=== PATIENT | female | born 1970 | race Caucasian/White ===

== ENCOUNTER 2017-03-27 10:08 | Emergency (ER) | payer SELFPAY ==
[2017-03-27 10:40] VITALS: BP 97/62
--- NOTE | 2017-03-27 11:12 | UC ---
Back Pain HPI - HPI Summary HPI Summary: pt presents with c/o left buttock and radiating pain. She reports that she sat for a long period of time yesterday on a metal chair and now has mid left buttock discomfort and radiating pain down the back of left leg upon waking this morning. - History of Current Complaint Chief Complaint: UCBackPain Stated Complaint: BACK PAIN Time Seen by Provider: 03/27/17 11:06 Hx Obtained From: Patient Hx Last Menstrual Period: Aug 2016 ?: No Onset/Duration: Gradual Onset, Lasting Hours Timing: Constant Severity Initially: Mild Severity Currently: Moderate Back Pain: Is Discrete @ - left mid buttock, Radiates To - down posterior left leg Character: Dull, Aching Aggravating: Movement Alleviating: Position Associated Signs And Symptoms: Positive: Pain with Weight Bearing - Risk Factors Cauda Equina Risk Factors: Negative - Allergies/Home Medications Allergies/Adverse Reactions: Allergies Allergy/AdvReac Type Severity Reaction Status Date / Time Hydromorphone [From Dilaudid] Allergy Swelling Verified 03/27/17 10:15 Of Face,Lips,& Throat Sulfa Antibiotics Allergy Hives Verified 03/27/17 10:15 PMH/Surg Hx/FS Hx/Imm Hx Previously Healthy: Yes - Surgical History Surgical History: Yes Surgery Procedure, Year, and Place: CSection x2. Right Falopian tube removed. Right wrist ORIF - Family History Known Family History: Positive: Cardiac Disease, Hypertension - mother, Diabetes - Social History Alcohol Use: Occasionally Substance Use Type: None Smoking Status (MU): Heavy Every Day Tobacco Smoker Type: Cigarettes Amount Used/How Often: 1/2 PPD Length of Time of Smoking/Using Tobacco: started at age 15 Have You Smoked in the Last Year: Yes Household Exposure Type: Cigarettes - Immunization History Most Recent Influenza Vaccination: Not the Season Review of Systems Constitutional: Negative Skin: Negative Eyes: Negative ENT: Negative Respiratory: Negative Cardiovascular: Negative Gastrointestinal: Negative Genitourinary: Negative Motor: Decreased ROM - left buttock, Neurovascular: Negative Musculoskeletal: Arthralgia, Myalgia Neurological: Negative Psychological: Negative All Other Systems Reviewed And Are Negative: Yes Physical Exam Triage Information Reviewed: Yes Appearance: Well-Appearing Vital Signs: Initial Vital Signs Temp 98.5 F 03/27/17 10:16 Pulse 80 03/27/17 10:16 Resp 16 03/27/17 10:16 BP 97/62 03/27/17 10:16 Pulse Ox 100 03/27/17 10:16 Vital Signs Reviewed: Yes Eye Exam: Normal ENT Exam: Normal Neck exam: Normal Respiratory Exam: Normal Cardiovascular Exam: Normal Musculoskeletal Exam: Other Musculoskeletal: Positive: Other: - tenderness with palpation left mid buttock Neurological Exam: Normal Psychological Exam: Normal Skin Exam: Normal Back Pain Course/Dx - Differential Dx/Diagnosis Differential Diagnosis/HQI/PQRI: Strain, Other - sciatica Provider Diagnoses: sciatica Discharge - Discharge Plan Condition: Stable Disposition: HOME Patient Education Materials: Sciatica (ED), Lower Back Exercises (ED) Forms: *Work Release Referrals: KITA Nguyen [Primary Care Provider] -
== END 2017-03-27 11:18 | disposition home or self-care (01) ==
LOC: UCCORT 10:08
DX: M54.32 Sciatica, left side (principal); F17.210 Nicotine dependence, cigarettes, uncomplicated; Z88.2 Allergy status to sulfonamides; Z88.5 Allergy status to narcotic agent
CPT/HCPCS: 99211; G0463

== ENCOUNTER 2017-08-30 11:53 | Emergency (ER) | payer OTHER ==
[2017-08-30 12:57] VITALS: BP 122/61
--- NOTE | 2017-08-30 13:33 | UC ---
Upper Extremity HPI - HPI Summary HPI Summary: 47 y/o female presents to the urgent care c/o left hand s/p injury at work [employer] around [id number] today. 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 Pain is 8/10 is sharp with movement and localized at the 3rd MCPJ. Pt denies fever, numbness and tingling over the hand. She has not taking anything for pain and declines any medication for pain. - History of Current Complaint Chief Complaint: UCUpperExtremity Stated Complaint: WC-LEFT HAND INJ Time Seen by Provider: 08/30/17 13:32 Hx Obtained From: Patient Hx Last Menstrual Period: 07/11/17 Onset/Duration: Sudden Onset, Lasting Hours - 1 hrs ago, Still Present Severity Initially: Moderate Severity Currently: Moderate Pain Intensity: 8 Pain Scale Used: 0-10 Numeric Location Of Pain: Is Discrete @ - left hand 3rd nuckle Character: Sharp Aggravating Factor(s): Movement, Flexion Alleviating Factor(s): Ice, Rest Associated Signs And Symptoms: Positive: Swelling, Redness, Bruising. Negative : Fever, Weakness, Numbness/Tingling Related History: Dominant Hand Right - Risk Factors Non-Orthopedic Risk Factor: Negative DVT Risk Factors: Negative Septic Arthritis Risk Factor: Negative - Allergies/Home Medications Allergies/Adverse Reactions: Allergies Allergy/AdvReac Type Severity Reaction Status Date / Time Hydromorphone [From Dilaudid] Allergy Swelling Verified 08/30/17 12:57 Of Face,Lips,& Throat Sulfa Antibiotics Allergy Hives Verified 08/30/17 12:57 PMH/Surg Hx/FS Hx/Imm Hx Previously Healthy: Yes - Pt denies PMHX - Surgical History Surgical History: Yes Surgery Procedure, Year, and Place: CSection x2. Right Falopian tube removed. Right wrist ORIF - Family History Known Family History: Positive: Cardiac Disease, Hypertension - mother, Diabetes - Social History Occupation: Employed Full-time Lives: With Family Alcohol Use: Occasionally Substance Use Type: None Smoking Status (MU): Heavy Every Day Tobacco Smoker Type: Cigarettes Amount Used/How Often: 1/2 PPD Length of Time of Smoking/Using Tobacco: started at age 15 Have You Smoked in the Last Year: Yes Household Exposure Type: Cigarettes - Immunization History Most Recent Influenza Vaccination: no Review of Systems Constitutional: Negative Skin: Negative Eyes: Negative ENT: Negative Respiratory: Negative Cardiovascular: Negative Gastrointestinal: Negative Genitourinary: Negative Motor: Decreased ROM - left hand 3rd MCPJ Musculoskeletal: Decreased ROM, Other: - Left hand pain s/p injury Neurological: Negative Psychological: Negative Is Patient Immunocompromised?: No All Other Systems Reviewed And Are Negative: Yes Physical Exam Triage Information Reviewed: Yes Vital Signs: Initial Vital Signs Temp 97.9 F 08/30/17 12:52 Pulse 59 08/30/17 12:52 Resp 16 08/30/17 12:52 BP 122/61 08/30/17 12:52 Pulse Ox 100 08/30/17 12:52 - Additional Comments Vital Signs Reviewed: Yes General: Well developed well nourished female sitting in the examining table w/ o any apparent distress Eyes: Positive: Conjunctiva Clear - PERRLA, EOMI ENT: Positive: Normal ENT inspection, Hearing grossly normal, Pharynx normal, TMs normal Neck: Positive: Supple, Nontender, No Lymphadenopathy Respiratory: Positive: Chest non-tender, Lungs clear, Normal breath sounds, No respiratory distress Cardiovascular: Positive: RRR, No Murmur, Pulses Normal, Brisk Capillary Refill Abdomen Description: Positive: Nontender, No Organomegaly, Soft. Negative: CVA Tenderness (R), CVA Tenderness (L) Bowel Sounds: Positive: Present Musculoskeletal: Positive: Strength Intact, No Edema, Rt Hand/Fingers: the R hand is without obvious asymmetry or deformity when compared to the L hand. mild swelling around dorsal side of #3 metacarpal and MCPJ, Pt can move the finger w/o any difficulty,bruising and ecchymosis over the dorsal side of MCPJ, no deformity or atrophy observed. Normal cascade of fingers. Normal flexion and extension of fingers, except for #3 phalanx due to pain. FDS and FDP intact against resistance. No focal fullness, throbbing pain, swelling of finger tip. Pulses and capillary refill WNL, positive reflexes and sensation intact Neurological Exam: Normal Psychological Exam: Normal Skin Exam: Normal Upper Extremity Course/Dx - Course Course Of Treatment: 47 y/o female presents to the urgent care c/o left hand s/ p injury at work [employer] around [id number] today. Pt reports she works at the [employer] at [employer] and crushed her hand with a bread steel cart and a moving case. Pain is 8/10 is sharp with movement and localized at the 3rd MCPJ. Pt denies fever, numbness and tingling over the hand. She has not taking anything for pain and declines any medication for pain.Hx obtained. Positive mild swelling dorsal side of the left 3rd MCPJ, with ecchymosis and point tenderness on palpation on examination. LF hand X-ray ordered: impression: Normal left hand radiogragh. Pt ' LF hand immobilized with Co-up splint . Pt Rx Naproxen PO .Pt advised RICE. F /u with Orthopedic in 1 week if not improvment of symptoms for further evaluation and treatment. Pt understood and agreed with D/C instructions. - Differential Dx/Diagnosis Differential Diagnosis/HQI/PQRI: Arthritis, Contusion, Fracture (Closed), Hematoma, Strain, Sprain Provider Diagnoses: 1- Left hand pain s/p injury. 2- Left hand sprain Discharge - Discharge Plan Condition: Stable Disposition: HOME Prescriptions: Ibuprofen TAB* [Motrin TAB* 800 MG] 800 mg PO Q6H #30 tab Patient Education Materials: Hand Sprain (ED) Referrals: KITA Nguyen [Primary Care Provider] - 1 Week Abilio Burris MD [Medical Doctor] - 1 Week Additional Instructions: 1-Please take Ibuprofen PO as directed after meals to alleviate pain and swelling. 2-Please apply ice, keep your hand immobilized with the splint. 3- Please f/u with Orthopedic Dr Burris or your PCP in 1 week is not improvement of symptoms for further evaluation and treatment.
--- NOTE | 2017-08-30 14:14 | RAD ---
INDICATION: Pain at the third metacarpal phalangeal joint after crush injury COMPARISON: None. TECHNIQUE: 4 views of the left hand were obtained. FINDINGS: The adequately corticated bones are in normal alignment. No significant focal osseous abnormality or fracture is seen. Joint spaces appear maintained. IMPRESSION: Normal left hand radiograph. If the patient's symptoms persist, follow-up imaging is recommended.
== END 2017-08-30 14:49 | disposition home or self-care (01) ==
LOC: UCCORT 11:53
DX: S63.92XA Sprain of unspecified part of left wrist and hand, initial encounter (principal); W23.0XXA Caught, crushed, jammed, or pinched between moving objects, initial encounter; Y92.89 Other specified places as the place of occurrence of the external cause; M25.542 Pain in joints of left hand; Z88.5 Allergy status to narcotic agent; Z88.2 Allergy status to sulfonamides; F17.210 Nicotine dependence, cigarettes, uncomplicated
CPT/HCPCS: 99213; G0463

== ENCOUNTER 2018-09-28 15:21 | Emergency (ER) | payer SELFPAY ==
[2018-09-28 15:47] VITALS: BP 102/58
--- NOTE | 2018-09-28 16:22 | UC ---
Respiratory Complaint HPI - HPI Summary HPI Summary: 48 y/o female presents to the urgent care c/o sore throat , sinus congestion w/ yellowish nasal discharge and a dry cough since yesterday. Pain w/ swallowing is 5/10. Pt has body aches and chills today. Pt denies fever, wheezing, SOB, chest pain, abdominal pain, N/V/D. Pt is a heavy everyday smoker. - History of Current Complaint Chief Complaint: UCRespiratory Stated Complaint: SINUS CONGESTION Time Seen by Provider: 09/28/18 16:07 Hx Obtained From: Patient Hx Last Menstrual Period: , PERIODS ARE BECOMING IRREG ?: No Onset/Duration: Gradual Onset, Lasting Days - 1 day, Still Present Timing: Intermittent Episodes Severity Initially: Mild Severity Currently: Mild Pain Intensity: 5 - sore throat Pain Scale Used: 0-10 Numeric Character: Cough: Nonproductive - dry Aggravating Factors: Recumbent Position Alleviating Factors: OTC Meds - ibuprofen PO Associated Signs And Symptoms: Positive: URI, Nasal Congestion, Sinus Discomfort. Negative: Fever, Chills, Wheezing - Risk Factors Pulmonary Embolism Risk Factors: Negative Cardiac Risk Factors: Negative Pseudomonas Risk Factors: Negative Tuberculosis Risk Factors: Negative - Allergies/Home Medications Allergies/Adverse Reactions: Allergies Allergy/AdvReac Type Severity Reaction Status Date / Time hydromorphone [From Dilaudid] Allergy Severe SWELLING Verified 09/28/18 15:37 OF LIPS AND FACE, THROAT Sulfa (Sulfonamide Allergy Unknown Hives Verified 09/28/18 15:37 Antibiotics) Home Medications: Home Medications Ibuprofen TAB* [Advil TAB*] 200 mg PO Q6H PRN 09/28/18 [History Confirmed ] PMH/Surg Hx/FS Hx/Imm Hx Previously Healthy: Yes Respiratory History: Asthma - Surgical History Surgical History: Yes Surgery Procedure, Year, and Place: CSection x2. Right Falopian tube removed. Right wrist ORIF - Family History Known Family History: Positive: Cardiac Disease, Hypertension - mother, Diabetes - Social History Occupation: Employed Full-time Lives: With Family Alcohol Use: Occasionally Substance Use Type: None Smoking Status (MU): Heavy Every Day Tobacco Smoker Type: Cigarettes Amount Used/How Often: 8 CIGS PER DAY Length of Time of Smoking/Using Tobacco: started at age 15 Have You Smoked in the Last Year: Yes Household Exposure Type: Cigarettes - Immunization History Most Recent Influenza Vaccination: no Review of Systems All Other Systems Reviewed And Are Negative: Yes Constitutional: Positive: Other - body aches Skin: Positive: Negative Eyes: Positive: Negative ENT: Positive: Sore Throat, Ear Ache - left ear pain, Nasal Discharge - yellowish, Sinus Congestion, Other - PND Respiratory: Positive: Cough - dry Cardiovascular: Positive: Negative Gastrointestinal: Positive: Negative Genitourinary: Positive: Negative Motor: Positive: Negative Neurovascular: Positive: Negative Musculoskeletal: Positive: Myalgia Neurological: Positive: Headache Psychological: Positive: Negative Is Patient Immunocompromised?: No Physical Exam - Summary Physical Exam Summary: VITAL SIGNS: Reviewed. GENERAL: Patient is a well developed and nourished female who is sitting comfortable in the examining table. Patient is not in any acute respiratory distress. HEAD AND FACE: No signs of trauma. No ecchymosis, hematomas or skull depressions. No sinus tenderness. EYES: PERRLA, EOMI x 2, No injected conjunctiva, no nystagmus. No photophobia. EARS: Hearing grossly intact. Ear canals and tympanic membranes are within normal limits. Nose: edematous and erythematous nasal mucosa w/ clear nasal discharge. MOUTH: Positive no erythema, no tonsillar enlargement. Uvula in midline. NECK: Supple, trachea is midline, Positive anterior cervical lymphadenopathy, no JVD, no carotid bruit, no c-spine tenderness, neck with full ROM. No meningeal signs, no Kernig's or brudzinskis signs. CHEST: Symmetric, no tenderness at palpation LUNGS: Clear to auscultation bilaterally. No wheezing or crackles. CVS: Regular rate and rhythm, S1 and S2 present, no murmurs or gallops appreciated. ABDOMEN: Soft, non-tender. No signs of distention. No rebound no guarding, and no masses palpated. Bowel sounds are normal. EXTREMITIES: FROM in all major joints, no edema, no cyanosis or clubbing. NEURO: Alert and oriented x 3. No acute neurological deficits. Speech is normal and follows commands. SKIN: Dry and warm Triage Information Reviewed: Yes Vital Signs: Initial Vital Signs Temp 99.3 F 09/28/18 15:38 Pulse 82 09/28/18 15:38 Resp 20 09/28/18 15:38 BP 102/58 09/28/18 15:38 Pulse Ox 98 09/28/18 15:38 Diagnostic Evaluation - Laboratory O2 Sat by Pulse Oximetry: 98 Respiratory Course/Dx - Course Course Of Treatment: 48 y/o female presents to the urgent care c/o sore throat , sinus congestion w/ yellowish nasal discharge and a dry cough since yesterday. Pain w/ swallowing is 5/10. Pt has body aches and chills today. Pt denies fever, wheezing, SOB, chest pain, abdominal pain, N/V/D. Pt is a heavy everyday smoker. Hx obtained. Pt with URI on examination. Rapid strep ordered, result: negative.Influenza A&B ordered: negative. Pt advised to continue taking ibuprofen PO to alleviates symptoms. Advised on hand washing and wear a mask to avoid spreading. Pt advised to rest, increase fluid intake, eat well and avoid strenuous exercise. If symptoms do not improve or worsen advised to return to the urgent care or f/u with her PCP in 3 days for further evaluation and treatment. Pt understood and agreed with plan of care. - Differential Dx/Diagnosis Differential Diagnosis/HQI/PQRI: Bronchitis, Influenza, Laryngitis, Sinusitis, Other - URI Provider Diagnosis: Upper respiratory infection Discharge - Sign-Out/Discharge Documenting (check all that apply): Patient Departure - D/C home All imaging exams completed and their final reports reviewed: No Studies - Discharge Plan Condition: Stable Disposition: HOME Patient Education Materials: Upper Respiratory Infection (ED) Forms: *Work Release Referrals: [facility] [Outside] - 3 Days Additional Instructions: 1-Please take ibuprofen PO q6-8hrs prn as instructed after meals to alleviate pain and swelling. Increase fluid intake, eat well, rest and avoid strenuous exercise 2-If symptoms do not improve or worsen please return to the urgent care or f/u with your PCP in 3 days for further evaluation and treatment. - Billing Disposition and Condition Condition: STABLE Disposition: Home - Attestation Statements Provider Attestation: I was available for consult. This patient was seen by the [facility]. The patient was not presented to, seen by, or examined by me. -Debby
== END 2018-09-28 17:07 | disposition home or self-care (01) ==
LOC: UCCORT 15:21
DX: J06.9 Acute upper respiratory infection, unspecified (principal); F17.210 Nicotine dependence, cigarettes, uncomplicated; Z88.2 Allergy status to sulfonamides; Z88.5 Allergy status to narcotic agent
CPT/HCPCS: 87651; 99211; G0463

== ENCOUNTER 2019-02-11 09:55 | Emergency (ER) | payer OTHER ==
[2019-02-11 10:47] VITALS: BP 109/57
--- NOTE | 2019-02-11 12:01 | UC ---
Lower Extremity/Ankle HPI - HPI Summary HPI Summary: Pt has a history of tendonitis in her feet with the same symptoms she is experiencing today. She states the pain and swelling to her foot at the base of the right great toe, started yesterday. She took 200mg of Motrin (which she states is the strongest she can take because it puts her to sleep.) She denies any injury. She says she usually self-treats with rest and elevation, but came in to day to get it checked. She refuses Toradol injection. She denies any history of gout and has had this in both feet at one time. - History of Current Complaint Chief Complaint: UCLowerExtremity Stated Complaint: RIGHT FOOT PAIN Time Seen by Provider: 02/11/19 12:00 Hx Obtained From: Patient Hx Last Menstrual Period: , PERIODS ARE BECOMING IRREG ?: No Onset/Duration: Gradual Onset Severity Initially: Mild Severity Currently: Moderate Pain Intensity: 7 Aggravating Factor(s): Ambulation Alleviating Factor(s): Rest, Elevation, Ice Able to Bear Weight: Yes - Allergies/Home Medications Allergies/Adverse Reactions: Allergies Allergy/AdvReac Type Severity Reaction Status Date / Time hydromorphone [From Dilaudid] Allergy Severe SWELLING Verified 02/11/19 10:42 OF LIPS AND FACE, THROAT Sulfa (Sulfonamide Allergy Unknown Hives Verified 02/11/19 10:42 Antibiotics) PMH/Surg Hx/FS Hx/Imm Hx Previously Healthy: Yes Respiratory History: Asthma Psychological History: Anxiety - Surgical History Surgical History: Yes Surgery Procedure, Year, and Place: CSection x2. Right Falopian tube removed. Right wrist ORIF - Family History Known Family History: Positive: Cardiac Disease, Hypertension - mother, Diabetes - Social History Alcohol Use: Occasionally Substance Use Type: None Smoking Status (MU): Heavy Every Day Tobacco Smoker Type: Cigarettes Amount Used/How Often: 10 CIGS PER DAY Length of Time of Smoking/Using Tobacco: started at age 15 Have You Smoked in the Last Year: Yes Household Exposure Type: Cigarettes - Immunization History Most Recent Influenza Vaccination: no Review of Systems All Other Systems Reviewed And Are Negative: Yes Motor: Positive: Negative Neurovascular: Positive: Negative Musculoskeletal: Positive: Negative, Other: - Pain and swelling base of right great toe. Neurological: Positive: Negative Is Patient Immunocompromised?: No Physical Exam Triage Information Reviewed: Yes Appearance: Well-Appearing, No Pain Distress, Well-Nourished Vital Signs: Initial Vital Signs Temp 99 F 02/11/19 10:43 Pulse 73 02/11/19 10:43 Resp 16 02/11/19 10:43 BP 109/57 02/11/19 10:43 Pulse Ox 98 02/11/19 10:43 Musculoskeletal: Positive: Strength Intact, ROM Intact, Other: - Pain and swelling at the base of the right great toe with tenderness on palpation. Plantar surface non-tender, base of 5th metatarsal non-tender. [place]'s intact , good periph pulses, neurosensation, cap refill. Neurological: Positive: Alert, Muscle Tone Normal Psychological Exam: Normal Skin Exam: Normal Lower Extremity Course/Dx - Course Course Of Treatment: X-Ray right foot: - Differential Dx/Diagnosis Provider Diagnosis: Tendinitis of right foot Discharge - Sign-Out/Discharge Documenting (check all that apply): Patient Departure All imaging exams completed and their final reports reviewed: Yes - Discharge Plan Condition: Fair Disposition: HOME Patient Education Materials: Tendinitis (ED) Referrals: [facility] [Outside] No Primary Care Phys,NOPCP [Primary Care Provider] - Jennifer Samano MD [Medical Doctor] - Additional Instructions: Elevate, warm moist compresses intermittently throughout the day, continue Motrin every 8 hours. Follow up with the orthopedist in 4-5 days if no improvement. - Billing Disposition and Condition Condition: FAIR Disposition: Home - Attestation Statements Provider Attestation: Per institutional requirements, I have reviewed the chart, however, I was not consulted specifically or made aware of this patient by the midlevel provider. I did not personally evaluate, interact with , or disposition this patient.
== END 2019-02-11 13:00 | disposition home or self-care (01) ==
LOC: UCCORT 09:55
DX: M77.51 Other enthesopathy of right foot and ankle (principal); J45.909 Unspecified asthma, uncomplicated; F41.9 Anxiety disorder, unspecified; F17.210 Nicotine dependence, cigarettes, uncomplicated; Z88.2 Allergy status to sulfonamides; Z88.5 Allergy status to narcotic agent
CPT/HCPCS: 99211; G0463

== ENCOUNTER 2019-04-30 18:41 | Emergency (ER) | payer OTHER ==
[2019-04-30 19:22] VITALS: BP 115/70
--- NOTE | 2019-04-30 19:43 | UC ---
Throat Pain/Nasal Parker HPI - HPI Summary HPI Summary: 49-year-old woman comes in with a chief complaint of 3 days of upper respiratory tract infection symptoms. She's had minimal rhinorrhea she has been using Afrin at night. She has had some wheezing. She has chest congestion unable to get up any sputum. She is a smoker. - History of Current Complaint Chief Complaint: UCGeneralIllness Stated Complaint: ST,SINUS CONCERN Time Seen by Provider: 04/30/19 19:27 Hx Last Menstrual Period: none Pain Intensity: 5 - Allergies/Home Medications Allergies/Adverse Reactions: Allergies Allergy/AdvReac Type Severity Reaction Status Date / Time hydromorphone [From Dilaudid] Allergy Severe SWELLING Verified 02/11/19 10:42 OF LIPS AND FACE, THROAT Sulfa (Sulfonamide Allergy Unknown Hives Verified 02/11/19 10:42 Antibiotics) Home Medications: Home Medications Albuterol HFA INHALER* [Ventolin HFA Inhaler*] 1 - 2 puff INH Q6H PRN 04/30/19 [ History Confirmed 04/30/19] PMH/Surg Hx/FS Hx/Imm Hx Previously Healthy: Yes - Surgical History Surgical History: Yes Surgery Procedure, Year, and Place: CSection x2. Right Falopian tube removed. Right wrist ORIF - Family History Known Family History: Positive: Cardiac Disease, Hypertension - mother, Diabetes - Social History Alcohol Use: Rare Substance Use Type: None Smoking Status (MU): Heavy Every Day Tobacco Smoker Type: Cigarettes Amount Used/How Often: 10 CIGS PER DAY Length of Time of Smoking/Using Tobacco: started at age 15 Have You Smoked in the Last Year: Yes Household Exposure Type: Cigarettes - Immunization History Most Recent Influenza Vaccination: no Review of Systems All Other Systems Reviewed And Are Negative: Yes Constitutional: Positive: Other - see hpi Skin: Positive: Negative Eyes: Positive: Negative ENT: Positive: Sore Throat, Nasal Discharge, Sinus Congestion Respiratory: Positive: Other - see hpi Cardiovascular: Positive: Negative Gastrointestinal: Positive: Negative Motor: Positive: Negative Neurovascular: Positive: Negative Musculoskeletal: Positive: Negative Neurological: Positive: Negative Psychological: Positive: Negative Is Patient Immunocompromised?: No Physical Exam Triage Information Reviewed: Yes Appearance: Well-Appearing, No Pain Distress, Well-Nourished Vital Signs: Initial Vital Signs Temp 100 F 04/30/19 19:17 Pulse 87 04/30/19 19:17 Resp 16 04/30/19 19:17 BP 115/70 04/30/19 19:17 Pulse Ox 98 04/30/19 19:17 Vital Signs Reviewed: Yes Eye Exam: Normal Eyes: Positive: Conjunctiva Clear Neck: Positive: Supple Respiratory: Positive: No respiratory distress, Wheezing Cardiovascular: Positive: RRR Musculoskeletal: Positive: Strength Intact, ROM Intact Neurological: Positive: Alert, Muscle Tone Normal Psychological: Positive: Normal Response To Family, Age Appropriate Behavior Skin Exam: Normal Throat Pain/Nasal Course/Dx - Course Course Of Treatment: DISCUSSED VIRAL VERSES BACTERIAL INFECTION AND THE ROLE OF ANTIBIOTICS. THE PATIENT PREFERS TO BE ON ANTIBIOTICS AT THIS TIME. - Differential Dx/Diagnosis Provider Diagnosis: Upper respiratory infection, Bronchospasm Discharge - Sign-Out/Discharge Documenting (check all that apply): Patient Departure All imaging exams completed and their final reports reviewed: No Studies - Discharge Plan Condition: Stable Disposition: HOME Prescriptions: Albuterol HFA INHALER* [Ventolin HFA Inhaler*] 2 puff INH Q4H PRN #1 mdi PRN Reason: Wheezing Azithromyxin AZAM (NF) [Z-Azam (Zithromax) 250 mg tabs #6] 2 tab PO .TODAY, THEN 1 DAILY #6 tab Patient Education Materials: Upper Respiratory Infection (ED), Bronchospasm (ED ) Forms: *Work Release Referrals: [facility] [Outside] Additional Instructions: FOLLOW UP WITH YOUR DOCTOR IF NOT COMPLETELY IMPROVED. GET REEVALUATED SOONER IF WORSE OR ANY QUESTIONS OR CONCERNS. - Billing Disposition and Condition Condition: STABLE Disposition: Home
== END 2019-04-30 19:49 | disposition home or self-care (01) ==
LOC: UCCORT 18:41
DX: J06.9 Acute upper respiratory infection, unspecified (principal); J98.01 Acute bronchospasm; Z88.2 Allergy status to sulfonamides; F17.210 Nicotine dependence, cigarettes, uncomplicated
CPT/HCPCS: 99212; G0463